=== PATIENT | female | born 1995 | race Caucasian/White ===

== ENCOUNTER 2021-03-14 06:06 | Day surgery (SDC) | payer BC ==
[2021-03-08 11:00] VITALS: BMI 18.2
[2021-03-14] MEDS ORDERED: OXYMETAZOLINE 0.05% NASAL SOLUTION 15 ML BOTTLE NS ONE (07:30)
[2021-03-14] MEDS ORDERED: LIDOCAINE 1%/EPI 1:100000 (20 ML MULTI DOSE VIAL) ONE ×2 (07:30→09:37)
[2021-03-14] MEDS ORDERED: ceFAZolin SODIUM 1 GM VIAL ONE (08:02)
[2021-03-14] MEDS ORDERED: KETOROLAC TROMETHAMINE 30 MG/1 ML VIAL ONE (08:02)
[2021-03-14] MEDS ORDERED: ONDANSETRON 4 MG/2 ML VIAL ONE (08:02)
[2021-03-14] MEDS ORDERED: DEXAMETHASONE SOD PHOSPHATE 4 MG/1 ML VIAL ONE (08:02)
[2021-03-14] MEDS ORDERED: LIDOCAINE HCL/PF 2% SDV 5ML VIAL ONE (08:02)
[2021-03-14] MEDS ORDERED: PROPOFOL 20 ML ONE ×5 (08:02)
[2021-03-14] MEDS ORDERED: fentaNYL CITRATE 250 MCG/5 ML VIAL ONE (08:02)
[2021-03-14] MEDS ORDERED: LIDOCAINE HCL 2% JELLY (5 ML/TUBE) ONE (08:02)
[2021-03-14] MEDS ORDERED: MIDAZOLAM HCL 2 MG/2 ML SINGLE DOSE VIAL ONE (08:03)
[2021-03-14] MEDS ORDERED: ROCURONIUM BROMIDE 50 MG/5 ML SYRINGE ONE (08:03)
[2021-03-14] MEDS ORDERED: SEVOFLURANE 250 ML BTL ONE (08:04)
[2021-03-14] MEDS ORDERED: HALOPERIDOL LACTATE 5 MG/ML ONE (08:09)
[2021-03-14] MEDS ORDERED: NEOSTIGMINE METHYLSULFATE 0.5 MG/1 ML - 10 ML MDV ONE (10:53)
[2021-03-14] MEDS ORDERED: GLYCOPYRROLATE 0.2 MG/1 ML VIAL ONE (10:53)
[2021-03-14] MEDS ORDERED: BACITRACIN 15 GM TUBE TOPICAL OINTMENT ONE (11:13)
[2021-03-14] MEDS ORDERED: GUM MASTIC/STORAX/MSAL/ALCOHOL 1 DRP DROPSBTL MC ONE (11:20)
[2021-03-14] MEDS ORDERED: PROMETHAZINE HCL 25 MG/1 ML VIAL IVPB PRN (11:40)
[2021-03-14] MEDS ORDERED: oxyCODONE HCL 5 MG TABLET PO PRN ×4 (11:40→11:52)
[2021-03-14] MEDS ORDERED: ONDANSETRON 4 MG/2 ML VIAL IVPUSH PRN (11:40)
[2021-03-14] MEDS ORDERED: ONDANSETRON 4 MG/2 ML VIAL IVPB PRN (11:52)
[2021-03-14] MEDS ORDERED: LACTATED RINGERS SOLUTION 1,000 ML IV SCH (12:00)
[2021-03-14 16:10] VITALS: TEMP 98.4
[2021-03-14 16:34] VITALS: BP 116/68; PULSE 72
== END 2021-03-14 14:45 | disposition home or self-care (01) ==
LOC: FASU 06:06
PROVIDERS: ATTEND Plastic Surgery
PROC: 09BM0ZX Excision of Nasal Septum, Open Approach, Diagnostic (ICD-10-PCS; 2021-03-14)
PROC: 09SM0ZZ Reposition Nasal Septum, Open Approach (ICD-10-PCS; principal; 2021-03-14 09:00)
DX: J34.2 Deviated nasal septum (principal); D14.0 Benign neoplasm of middle ear, nasal cavity and accessory sinuses; J34.89 Other specified disorders of nose and nasal sinuses; J34.3 Hypertrophy of nasal turbinates
CPT/HCPCS: 81025; 88305-TC; 94760